=== PATIENT | female | born 1935 | race Caucasian/White ===

== ENCOUNTER 2019-04-12 13:22 | Inpatient (IN) | payer MEDICARE ==
[2019-04-12] MEDS ORDERED: Dextrose 5% in Water 1,000 ML IV PRN (21:35)
[2019-04-12] MEDS ORDERED: Dextrose 50% Abboject 50 ML SYRINGE IVP PRN (21:35)
[2019-04-12] MEDS ORDERED: HumaLOG 300 UNITS/3 ML VIAL SC PRN (21:35)
[2019-04-12] MEDS ORDERED: Terazosin HCl 5 MG CAP PO SCH (22:15)
[2019-04-12] MEDS ORDERED: Hydrochlorothiazide 25 MG TAB PO SCH (22:15)
[2019-04-12] MEDS ORDERED: Lisinopril 20 MG TAB PO SCH (22:15)
[2019-04-12] MEDS: Acetaminophen 325 MG TAB PO PRN (23:26)
[2019-04-13] MEDS: Acetaminophen 325 MG TAB PO PRN ×3 (05:17→20:35)
[2019-04-13] MEDS: Citalopram 20 MG TAB PO SCH ×2 (08:06→08:07)
[2019-04-13] MEDS: Hydrochlorothiazide 25 MG TAB PO SCH ×2 (08:06→20:38)
[2019-04-13] MEDS: Atenolol 25 MG TAB PO SCH (08:07)
[2019-04-13] MEDS: glipiZIDE 5 MG TAB PO SCH ×2 (08:07→17:10)
[2019-04-13] MEDS: Lisinopril 20 MG TAB PO SCH ×3 (08:08→20:37)
[2019-04-13] MEDS: Amlodipine 5 MG TAB PO SCH (08:09)
[2019-04-13] MEDS: Carvedilol 12.5 MG TAB PO SCH ×2 (08:09→17:10)
[2019-04-13] MEDS: Terazosin HCl 5 MG CAP PO SCH ×2 (08:10→20:36)
[2019-04-13] MEDS: Rosuvastatin 10 MG TAB PO SCH (08:10)
[2019-04-13] MEDS ORDERED: Loperamide HCl 2 MG CAP PO PRN (11:54)
[2019-04-13] MEDS ORDERED: Ondansetron ODT 4 MG TAB PO PRN (11:54)
[2019-04-13] MEDS: HumaLOG 300 UNITS/3 ML VIAL SC PRN ×2 (12:12→17:12)
[2019-04-13] MEDS: Loperamide HCl 2 MG CAP PO PRN (14:55)
[2019-04-13] MEDS: Famotidine 20 MG TAB PO SCH (20:38)
[2019-04-13] MEDS: Triamcinolone Acetonide 200 MG, Emollient 15 oz bottle 450 ML TOP SCH (20:42)
[2019-04-13] MEDS ORDERED: EMOLLIENT TOP SCH (21:00)
[2019-04-13] MEDS ORDERED: FLU VACC TS2019-20(65YR UP)/PF 180 MCG/0.5 ML SYRINGE IM ONE (21:00)
[2019-04-13] MEDS ORDERED: TRIAMCINOLONE ACETONIDE 40 MG TOP SCH (21:00)
--- NOTE | 2019-04-13 23:33 | HP ---
PRIMARY CARE PHYSICIAN: Out of town. REASON FOR ADMISSION: For skilled rehabilitation here at [facility] bed due to physical deconditioning secondary to acute kidney injury, congestive heart failure, and urinary tract infection. BRIEF H AND P: Ms. Jonse is an 84-year-old female with a past medical history of hypertension; diabetes, type 2; morbid obesity; mild dementia; CKD stage 4; hyperlipidemia. The patient was brought in by the EMS to the emergency room on the 31 of March due to right hip pain x1 month, which caused decrease in mobility per son. The patient's son states the patient had been in the recliner for almost a month and had swelling throughout bilateral lower extremities. He notes the extremities started weeping and developed erythematous lesions to both shins. EMS was called and during the ride, they noted the patient's blood pressure was 236/106. Also noted seeping to the extremities. In the ER, the patient was noted to have a BNP of 123. Troponin was negative, but Cardiology was consulted as they suspected congestive heart failure. The patient was seen by Cardiology. She had an echocardiogram done on the 01 of April, which showed mild diastolic dysfunction with an EF of 55% to 60%. The patient was also noted to have a urinary tract infection and also cellulitis to bilateral lower extremities due to chronic venous stasis. The patient was started on IV antibiotics and completed a course of seven days of antibiotics and the UTI and lower extremity improved significantly. The patient was also started on IV Lasix and edema slowly improved. During hospitalization, the patient's admission was complicated by acute kidney injury on chronic kidney disease. She was seen by gear shaper, and Dr. Way. They monitored the patient throughout. The patient had albumin transfusions. Renal function was closely monitored. Lasix was changed to oral medications, hydrochlorothiazide, amlodipine was initially held due to hypotension and worsening renal function. The patient was placed on strict I's and O's, daily weights, and fluid restriction of 1500. She was advised to elevate her feet. The patient had improvement in her creatinine, but her GFR was pretty much the same. The pressing machine tender recommended to avoid nephrotoxins and follow up with diuretics cautiously. The patient slowly improved. She was severely physically deconditioned and the decision was made to transfer the patient to [facility] for physical rehabilitation prior to discharge back to home. The patient lives in a trailer home with her son. She says one month ago when all this started, she was able to ambulate with a two-wheeled rolling walker. Upon evaluation of the patient today, she was happy to be in facility. She was excited to start physical therapy. She denies any chest pain, shortness of breath, palpitation, or dizziness. She complains of very hard of hearing, but this is chronic for her. She denies any pain, nausea, vomiting, or diarrhea. PAST MEDICAL HISTORY: Hypertension, depression, osteoarthritis, diabetes type 2 , chronic kidney disease stage 4, and morbid obesity. PAST SURGICAL HISTORY: Cholecystectomy and hysterectomy. FAMILY HISTORY: Reports family history of cancer. SOCIAL HISTORY: The patient is retired. She lives in a trailer with her son. She ambulates with a cane and a walker. Denies tobacco, alcohol, or illicit drug use. CODE STATUS: The patient is a full code. ALLERGIES: NO KNOWN DRUG ALLERGIES. REVIEW OF SYSTEMS: CONSTITUTIONAL: Complains of generalized weakness. HEENT: Complains of hard of hearing. Denies any tachypnea. Denies any cough. Denies any vision loss or runny nose. CARDIOVASCULAR: Denies chest pain, shortness of breath, or palpitation. RESPIRATORY: Denies wheezing or cough. GASTROINTESTINAL: Denies abdominal pain, nausea, or vomiting. Complains of diarrhea. PSYCH: Complains of occasional confusion. PHYSICAL EXAMINATION: VITAL SIGNS: Temperature 97.5, pulse 72, respirations 18, O2 saturation 94% on room air, and blood pressure 164/70. GENERAL: The patient is alert, awake, and oriented x3. Lying in bed, no apparent distress. HEENT: Normocephalic and atraumatic. Moist oral mucous membranes. The patient is very hard of hearing. Has partial blindness. Anicteric sclerae. NECK: Supple. No JVD. Symmetrical. Trachea midline. No carotid bruit. CARDIAC: S1 and S2 normal. No murmurs. No gallops. No rubs. RESPIRATORY: Clear to auscultation bilaterally. No wheezing. No rales. ABDOMEN: Positive bowel sounds. Soft, nontender, obese. No guarding. EXTREMITIES: No edema bilaterally. SKIN: The patient has multiple bruises and ecchymoses to upper extremities bilaterally. The patient does have erythema, thick dry skin to the gerber of the right lower extremity. NEUROLOGICAL: No focal deficits. Cranial nerves 2 through 12 grossly intact. MUSCULOSKELETAL: Complains of weakness and mild right hip pain. PSYCHIATRIC: Flat affect. Alert, awake, and oriented x3. ASSESSMENT: 1. Physical deconditioning. 2. Acute kidney injury. 3. Acute exacerbation of congestive heart failure, diastolic dysfunction with an EF of 55% to 60%. 4. Diabetes, type 2. 5. Gait instability. 6. Mild dementia. 7. Venous stasis. 8. Hypertension. 9. Obesity. PLAN: The patient is an 84-year-old female, who has been admitted to [facility]. We will consult Physical Therapy to help with strengthening and gait instability. We will consult Occupational Therapy to help with activities of daily living. We will place the patient on a strict I's and O's. Diet, we will place her on 2000 mL fluid restriction. We will put on a low- sodium diet and diabetic diet. We will resume all the patient's home medications. We will place the patient on Accu-Chek a.c. and at bedtime. We will place the patient on GISELA hose for DVT prophylaxis and Pepcid for GI prophylaxis. We will monitor renal function closely. We will repeat BMP at least three times a week. The patient is to follow up with gear shaper as an outpatient and pressing machine tender as an outpatient. We will coordinate the patient's care with her son, who is also the power of spray unit feeder. ESTIMATED LENGTH OF STAY: 2 to 3 weeks. Job ID: [id number] [facility]
[2019-04-14] MEDS: Acetaminophen 325 MG TAB PO PRN ×2 (05:12→16:05)
[2019-04-14 05:31] LABS: #Eosinphils 0.1 thou/uL (0.0-0.7); #Lymphocytes 0.6 thou/uL (1.20-3.40); #Monocytes 0.7 thou/uL (0.11-0.59); #Neutrophils 5.5 thou/uL (1.40-6.50); %Basophils 0.5 % (0.0-1.0); %Eosinophils 1.1 % (0.0-10.0); %Monocytes 10.2 % (0.0-10.0); %Neutrophils 79.2 % (42.0-75.0); Hemoglobin 8.1 g/dL (12.0-16.0); Mean Corpuscular HGB CONC 30.7 g/dL (32.0-36.0); Mean Corpuscular Hemoglobin 28.4 pg (27.0-31.0); Mean Corpuscular Volume 92.6 fL (78.0-98.0); Mean Platelet Volume 7.2 fL (7.4-10.4); Platelet Count 162 thou/uL (130-400); RBC Distribution Width 13.8 % (11.5-14.5); Red Blood Cell (RBC) Count 2.85 mill/uL (4.20-5.40); White Blood Cell (WBC) Count 6.9 thou/uL (4.8-10.8)
[2019-04-14 05:46] LABS: Anion Gap 18 mmol/L (10-20); BUN (Urea Nitrogen) 62 mg/dL (9.8-20.1); Calc. Creatinine Clearance 19 mL/min (70-130); Calcium 8.7 mg/dL (7.8-10.44); Carbon Dioxide 21 mmol/L (23-31); Chloride 102 mmol/L (98-107); Estimated GFR-MDRD 11; Glucose 69 mg/dL (83-110); Potassium 3.6 mmol/L (3.5-5.1); Sodium 137 mmol/L (136-145)
[2019-04-14] MEDS: Famotidine 20 MG TAB PO SCH ×2 (08:33→21:21)
[2019-04-14] MEDS: Terazosin HCl 5 MG CAP PO SCH ×2 (08:33→21:21)
[2019-04-14] MEDS: Rosuvastatin 10 MG TAB PO SCH (08:33)
[2019-04-14] MEDS: Hydrochlorothiazide 25 MG TAB PO SCH ×2 (08:34→21:23)
[2019-04-14] MEDS: Lisinopril 20 MG TAB PO SCH ×2 (08:36→21:22)
[2019-04-14] MEDS: Amlodipine 5 MG TAB PO SCH (08:37)
[2019-04-14] MEDS: Carvedilol 12.5 MG TAB PO SCH ×2 (08:37→17:35)
[2019-04-14] MEDS: Atenolol 25 MG TAB PO SCH (08:37)
[2019-04-14] MEDS: Citalopram 20 MG TAB PO SCH (08:38)
[2019-04-14] MEDS: glipiZIDE 5 MG TAB PO SCH ×2 (08:39→16:05)
[2019-04-14] MEDS: Triamcinolone Acetonide 200 MG, Emollient 15 oz bottle 450 ML TOP SCH ×2 (08:40→21:26)
[2019-04-15] MEDS: glipiZIDE 5 MG TAB PO SCH ×2 (07:48→16:58)
[2019-04-15] MEDS: Hydrochlorothiazide 25 MG TAB PO SCH ×2 (08:46→21:04)
[2019-04-15] MEDS: Famotidine 20 MG TAB PO SCH ×2 (08:46→21:04)
[2019-04-15] MEDS: Terazosin HCl 5 MG CAP PO SCH ×2 (08:46→21:05)
[2019-04-15] MEDS: Rosuvastatin 10 MG TAB PO SCH (08:47)
[2019-04-15] MEDS: Carvedilol 12.5 MG TAB PO SCH ×2 (08:47→16:59)
[2019-04-15] MEDS: Atenolol 25 MG TAB PO SCH (08:47)
[2019-04-15] MEDS: Amlodipine 5 MG TAB PO SCH (08:48)
[2019-04-15] MEDS: Lisinopril 20 MG TAB PO SCH ×2 (08:48→21:05)
[2019-04-15] MEDS: Citalopram 20 MG TAB PO SCH (08:50)
[2019-04-15] MEDS: Triamcinolone Acetonide 200 MG, Emollient 15 oz bottle 450 ML TOP SCH ×2 (08:51→21:03)
[2019-04-15] MEDS: Acetaminophen 325 MG TAB PO PRN (11:41)
[2019-04-16] MEDS: Acetaminophen 325 MG TAB PO PRN (00:22)
[2019-04-16] MEDS: Famotidine 20 MG TAB PO SCH ×2 (08:20→20:14)
[2019-04-16] MEDS: glipiZIDE 5 MG TAB PO SCH ×2 (08:20→17:11)
[2019-04-16] MEDS: Atenolol 25 MG TAB PO SCH (08:21)
[2019-04-16] MEDS: Citalopram 20 MG TAB PO SCH (08:21)
[2019-04-16] MEDS: Carvedilol 12.5 MG TAB PO SCH ×2 (08:21→17:11)
[2019-04-16] MEDS: Terazosin HCl 5 MG CAP PO SCH ×2 (08:21→20:16)
[2019-04-16] MEDS: Rosuvastatin 10 MG TAB PO SCH (08:21)
[2019-04-16] MEDS: Lisinopril 20 MG TAB PO SCH ×2 (08:21→20:16)
[2019-04-16] MEDS: Amlodipine 5 MG TAB PO SCH (08:21)
[2019-04-16] MEDS: Hydrochlorothiazide 25 MG TAB PO SCH ×2 (08:22→20:15)
[2019-04-16] MEDS: Triamcinolone Acetonide 200 MG, Emollient 15 oz bottle 450 ML TOP SCH ×2 (08:23→20:17)
[2019-04-17] MEDS: Amlodipine 5 MG TAB PO SCH (08:38)
[2019-04-17] MEDS: Carvedilol 12.5 MG TAB PO SCH ×2 (08:38→16:55)
[2019-04-17] MEDS: Famotidine 20 MG TAB PO SCH ×2 (08:38→20:54)
[2019-04-17] MEDS: glipiZIDE 5 MG TAB PO SCH ×2 (08:39→16:55)
[2019-04-17] MEDS: Citalopram 20 MG TAB PO SCH (08:39)
[2019-04-17] MEDS: Rosuvastatin 10 MG TAB PO SCH (08:39)
[2019-04-17] MEDS: Atenolol 25 MG TAB PO SCH (08:39)
[2019-04-17] MEDS: Lisinopril 20 MG TAB PO SCH ×2 (08:40→20:55)
[2019-04-17] MEDS: Hydrochlorothiazide 25 MG TAB PO SCH ×2 (08:40→20:54)
[2019-04-17] MEDS: Terazosin HCl 5 MG CAP PO SCH ×2 (08:41→20:56)
[2019-04-17] MEDS: Triamcinolone Acetonide 200 MG, Emollient 15 oz bottle 450 ML TOP SCH ×2 (08:41→22:10)
[2019-04-17] MEDS: Acetaminophen 325 MG TAB PO PRN ×2 (09:44→20:57)
[2019-04-18] MEDS: Acetaminophen 325 MG TAB PO PRN ×2 (05:27→20:51)
[2019-04-18] MEDS: Carvedilol 12.5 MG TAB PO SCH ×2 (08:49→17:07)
[2019-04-18] MEDS: Amlodipine 5 MG TAB PO SCH (08:49)
[2019-04-18] MEDS: Famotidine 20 MG TAB PO SCH (08:50)
[2019-04-18] MEDS: Rosuvastatin 10 MG TAB PO SCH (08:50)
[2019-04-18] MEDS: Citalopram 20 MG TAB PO SCH (08:50)
[2019-04-18] MEDS: Terazosin HCl 5 MG CAP PO SCH (08:50)
[2019-04-18] MEDS: Lisinopril 20 MG TAB PO SCH ×2 (08:50→20:50)
[2019-04-18] MEDS: Atenolol 25 MG TAB PO SCH (08:51)
[2019-04-18] MEDS: Hydrochlorothiazide 25 MG TAB PO SCH ×2 (08:52→20:50)
[2019-04-18] MEDS: Triamcinolone Acetonide 200 MG, Emollient 15 oz bottle 450 ML TOP SCH ×2 (08:57→20:49)
[2019-04-18 09:56] LABS: #Lymphocytes 0.6 thou/uL (1.20-3.40); #Monocytes 0.5 thou/uL (0.11-0.59); #Neutrophils 3.6 thou/uL (1.40-6.50); %Eosinophils 0.1 % (0.0-10.0); %Lymphocytes 11.8 % (21.0-51.0); %Monocytes 10.9 % (0.0-10.0); %Neutrophils 76.2 % (42.0-75.0); Hemoglobin 7.3 g/dL (12.0-16.0); Mean Corpuscular HGB CONC 31.1 g/dL (32.0-36.0); Mean Corpuscular Hemoglobin 28.5 pg (27.0-31.0); Mean Corpuscular Volume 91.7 fL (78.0-98.0); Platelet Count 160 thou/uL (130-400); RBC Distribution Width 13.9 % (11.5-14.5); Red Blood Cell (RBC) Count 2.57 mill/uL (4.20-5.40); White Blood Cell (WBC) Count 4.7 thou/uL (4.8-10.8)
[2019-04-18 10:11] LABS: ALT (SGPT) 31 U/L (8-55); AST (SGOT) 25 U/L (5-34); Albumin 3.3 g/dL (3.4-4.8); Alkaline Phosphatase 94 U/L (40-110); Anion Gap 16 mmol/L (10-20); BUN (Urea Nitrogen) 79 mg/dL (9.8-20.1); Bilirubin, Total 0.3 mg/dL (0.2-1.2); Calc. Creatinine Clearance 21 mL/min (70-130); Calcium 8.2 mg/dL (7.8-10.44); Carbon Dioxide 21 mmol/L (23-31); Chloride 100 mmol/L (98-107); Estimated GFR-MDRD 13; Globulin 3.1 g/dL (2.4-3.5); Glucose 192 mg/dL (83-110); Potassium 4.9 mmol/L (3.5-5.1); Protein, Total 6.4 g/dL (6.0-8.3); Sodium 132 mmol/L (136-145)
[2019-04-19] MEDS: Carvedilol 12.5 MG TAB PO SCH ×2 (08:29→17:11)
[2019-04-19] MEDS: Famotidine 20 MG TAB PO SCH (08:29)
[2019-04-19] MEDS: Amlodipine 5 MG TAB PO SCH (08:29)
[2019-04-19] MEDS: Terazosin HCl 5 MG CAP PO SCH (08:30)
[2019-04-19] MEDS: Hydrochlorothiazide 25 MG TAB PO SCH ×2 (08:30→21:21)
[2019-04-19] MEDS: Lisinopril 20 MG TAB PO SCH ×2 (08:30→21:21)
[2019-04-19] MEDS: Rosuvastatin 10 MG TAB PO SCH (08:30)
[2019-04-19] MEDS: Citalopram 20 MG TAB PO SCH (08:30)
[2019-04-19] MEDS: Triamcinolone Acetonide 200 MG, Emollient 15 oz bottle 450 ML TOP SCH ×2 (08:31→21:20)
[2019-04-19] MEDS: Acetaminophen 325 MG TAB PO PRN (21:20)
[2019-04-20] MEDS: Rosuvastatin 10 MG TAB PO SCH (08:14)
[2019-04-20] MEDS: Terazosin HCl 5 MG CAP PO SCH (08:14)
[2019-04-20] MEDS: Citalopram 20 MG TAB PO SCH (08:14)
[2019-04-20] MEDS: Famotidine 20 MG TAB PO SCH (08:14)
[2019-04-20] MEDS: Carvedilol 12.5 MG TAB PO SCH ×2 (08:14→17:07)
[2019-04-20] MEDS: Amlodipine 5 MG TAB PO SCH (08:15)
[2019-04-20] MEDS: glipiZIDE 5 MG TAB PO SCH (08:15)
[2019-04-20] MEDS: Lisinopril 20 MG TAB PO SCH ×2 (08:15→20:04)
[2019-04-20] MEDS: Hydrochlorothiazide 25 MG TAB PO SCH ×2 (08:15→20:06)
[2019-04-20] MEDS: Triamcinolone Acetonide 200 MG, Emollient 15 oz bottle 450 ML TOP SCH ×2 (08:16→20:06)
[2019-04-21] MEDS: Lisinopril 20 MG TAB PO SCH ×2 (08:25→20:00)
[2019-04-21] MEDS: Hydrochlorothiazide 25 MG TAB PO SCH ×2 (08:25→20:00)
[2019-04-21] MEDS: glipiZIDE 5 MG TAB PO SCH (08:26)
[2019-04-21] MEDS: Carvedilol 12.5 MG TAB PO SCH ×2 (08:26→17:29)
[2019-04-21] MEDS: Rosuvastatin 10 MG TAB PO SCH (08:26)
[2019-04-21] MEDS: Terazosin HCl 5 MG CAP PO SCH (08:26)
[2019-04-21] MEDS: Amlodipine 5 MG TAB PO SCH (08:26)
[2019-04-21] MEDS: Citalopram 20 MG TAB PO SCH (08:26)
[2019-04-21] MEDS: Famotidine 20 MG TAB PO SCH (08:27)
[2019-04-21] MEDS: Triamcinolone Acetonide 200 MG, Emollient 15 oz bottle 450 ML TOP SCH ×2 (08:27→20:03)
[2019-04-21] MEDS: Loperamide HCl 2 MG CAP PO PRN (10:06)
[2019-04-22 06:49] LABS: #Eosinphils 0.1 thou/uL (0.0-0.7); #Lymphocytes 0.5 thou/uL (1.20-3.40); #Monocytes 0.6 thou/uL (0.11-0.59); #Neutrophils 2.7 thou/uL (1.40-6.50); %Basophils 1.1 % (0.0-1.0); %Eosinophils 2.1 % (0.0-10.0); %Lymphocytes 13.6 % (21.0-51.0); %Monocytes 14.5 % (0.0-10.0); %Neutrophils 68.6 % (42.0-75.0); Hemoglobin 7.7 g/dL (12.0-16.0); Mean Corpuscular HGB CONC 30.5 g/dL (32.0-36.0); Mean Corpuscular Hemoglobin 28.4 pg (27.0-31.0); Mean Corpuscular Volume 93.2 fL (78.0-98.0); Mean Platelet Volume 7.5 fL (7.4-10.4); Platelet Count 124 thou/uL (130-400); RBC Distribution Width 14.1 % (11.5-14.5); Red Blood Cell (RBC) Count 2.69 mill/uL (4.20-5.40)
[2019-04-22 07:02] LABS: Anion Gap 16 mmol/L (10-20); BUN (Urea Nitrogen) 54 mg/dL (9.8-20.1); Calc. Creatinine Clearance 29 mL/min (70-130); Calcium 9.1 mg/dL (7.8-10.44); Carbon Dioxide 20 mmol/L (23-31); Chloride 109 mmol/L (98-107); Estimated GFR-MDRD 20; Glucose 118 mg/dL (83-110); Sodium 140 mmol/L (136-145)
[2019-04-22] MEDS: Rosuvastatin 10 MG TAB PO SCH (08:19)
[2019-04-22] MEDS: glipiZIDE 5 MG TAB PO SCH (08:19)
[2019-04-22] MEDS: Terazosin HCl 5 MG CAP PO SCH (08:19)
[2019-04-22] MEDS: Citalopram 20 MG TAB PO SCH (08:19)
[2019-04-22] MEDS: Famotidine 20 MG TAB PO SCH (08:19)
[2019-04-22] MEDS: Amlodipine 5 MG TAB PO SCH (08:20)
[2019-04-22] MEDS: Hydrochlorothiazide 25 MG TAB PO SCH ×2 (08:20→20:25)
[2019-04-22] MEDS: Carvedilol 12.5 MG TAB PO SCH ×2 (08:20→17:11)
[2019-04-22] MEDS: Lisinopril 20 MG TAB PO SCH ×2 (08:20→20:27)
[2019-04-22] MEDS: Triamcinolone Acetonide 200 MG, Emollient 15 oz bottle 450 ML TOP SCH ×2 (08:21→20:27)
[2019-04-22] MEDS ORDERED: Amlodipine 5 MG TAB PO SCH (12:15)
[2019-04-22] MEDS ORDERED: Escitalopram Oxalate 10 mg Tablet PO SCH (14:00)
[2019-04-22] MEDS: Acetaminophen 325 MG TAB PO PRN (21:15)
[2019-04-23] MEDS: glipiZIDE 5 MG TAB PO SCH (09:38)
[2019-04-23] MEDS: Famotidine 20 MG TAB PO SCH (09:38)
[2019-04-23] MEDS: Citalopram 20 MG TAB PO SCH (09:38)
[2019-04-23] MEDS: Escitalopram Oxalate 10 mg Tablet PO SCH (09:39)
[2019-04-23] MEDS: Carvedilol 12.5 MG TAB PO SCH ×2 (09:39→17:17)
[2019-04-23] MEDS: Amlodipine 5 MG TAB PO SCH (09:39)
[2019-04-23] MEDS: Terazosin HCl 5 MG CAP PO SCH (09:40)
[2019-04-23] MEDS: Lisinopril 20 MG TAB PO SCH ×2 (09:40→21:01)
[2019-04-23] MEDS: Hydrochlorothiazide 25 MG TAB PO SCH ×2 (09:40→21:04)
[2019-04-23] MEDS: Rosuvastatin 10 MG TAB PO SCH (09:40)
[2019-04-23] MEDS: Triamcinolone Acetonide 200 MG, Emollient 15 oz bottle 450 ML TOP SCH ×2 (09:41→21:07)
[2019-04-24] MEDS: glipiZIDE 5 MG TAB PO SCH (08:09)
[2019-04-24] MEDS: Carvedilol 12.5 MG TAB PO SCH ×2 (08:09→17:22)
[2019-04-24] MEDS: Citalopram 20 MG TAB PO SCH (08:10)
[2019-04-24] MEDS: Hydrochlorothiazide 25 MG TAB PO SCH ×2 (08:10→20:26)
[2019-04-24] MEDS: Rosuvastatin 10 MG TAB PO SCH (08:10)
[2019-04-24] MEDS: Terazosin HCl 5 MG CAP PO SCH (08:10)
[2019-04-24] MEDS: Escitalopram Oxalate 10 mg Tablet PO SCH (08:13)
[2019-04-24] MEDS: Lisinopril 20 MG TAB PO SCH ×2 (08:13→20:30)
[2019-04-24] MEDS: Famotidine 20 MG TAB PO SCH (08:13)
[2019-04-24] MEDS: Amlodipine 5 MG TAB PO SCH (08:14)
[2019-04-24] MEDS: Triamcinolone Acetonide 200 MG, Emollient 15 oz bottle 450 ML TOP SCH ×2 (08:14→20:30)
[2019-04-25] MEDS: Famotidine 20 MG TAB PO SCH (08:17)
[2019-04-25] MEDS: glipiZIDE 5 MG TAB PO SCH (08:17)
[2019-04-25] MEDS: Hydrochlorothiazide 25 MG TAB PO SCH ×2 (08:18→20:24)
[2019-04-25] MEDS: Citalopram 20 MG TAB PO SCH (08:18)
[2019-04-25] MEDS: Escitalopram Oxalate 10 mg Tablet PO SCH (08:19)
[2019-04-25] MEDS: Carvedilol 12.5 MG TAB PO SCH ×2 (08:19→17:07)
[2019-04-25] MEDS: Rosuvastatin 10 MG TAB PO SCH (08:19)
[2019-04-25] MEDS: Terazosin HCl 5 MG CAP PO SCH (08:19)
[2019-04-25] MEDS: Amlodipine 5 MG TAB PO SCH (08:19)
[2019-04-25] MEDS: Lisinopril 20 MG TAB PO SCH ×2 (08:19→20:24)
[2019-04-25] MEDS: Triamcinolone Acetonide 200 MG, Emollient 15 oz bottle 450 ML TOP SCH ×2 (08:20→20:24)
[2019-04-26] MEDS: Citalopram 20 MG TAB PO SCH (08:19)
[2019-04-26] MEDS: Carvedilol 12.5 MG TAB PO SCH ×2 (08:19→17:04)
[2019-04-26] MEDS: Escitalopram Oxalate 10 mg Tablet PO SCH (08:19)
[2019-04-26] MEDS: glipiZIDE 5 MG TAB PO SCH (08:19)
[2019-04-26] MEDS: Terazosin HCl 5 MG CAP PO SCH (08:19)
[2019-04-26] MEDS: Amlodipine 5 MG TAB PO SCH (08:19)
[2019-04-26] MEDS: Rosuvastatin 10 MG TAB PO SCH (08:20)
[2019-04-26] MEDS: Lisinopril 20 MG TAB PO SCH ×2 (08:20→20:26)
[2019-04-26] MEDS: Hydrochlorothiazide 25 MG TAB PO SCH ×2 (08:20→20:26)
[2019-04-26] MEDS: Triamcinolone Acetonide 200 MG, Emollient 15 oz bottle 450 ML TOP SCH ×2 (08:21→20:26)
[2019-04-26] MEDS: Famotidine 20 MG TAB PO SCH (08:21)
[2019-04-26 13:43] LABS: Anion Gap 13 mmol/L (10-20); BUN (Urea Nitrogen) 42 mg/dL (9.8-20.1); Calc. Creatinine Clearance 29 mL/min (70-130); Calcium 8.8 mg/dL (7.8-10.44); Carbon Dioxide 22 mmol/L (23-31); Chloride 108 mmol/L (98-107); Estimated GFR-MDRD 20; Glucose 138 mg/dL (83-110); Potassium 5.3 mmol/L (3.5-5.1); Sodium 138 mmol/L (136-145)
[2019-04-27] MEDS: Famotidine 20 MG TAB PO SCH (08:14)
[2019-04-27] MEDS: Escitalopram Oxalate 10 mg Tablet PO SCH (08:15)
[2019-04-27] MEDS: Rosuvastatin 10 MG TAB PO SCH (08:15)
[2019-04-27] MEDS: Amlodipine 5 MG TAB PO SCH (08:15)
[2019-04-27] MEDS: Terazosin HCl 5 MG CAP PO SCH (08:15)
[2019-04-27] MEDS: Carvedilol 12.5 MG TAB PO SCH ×2 (08:16→17:02)
[2019-04-27] MEDS: Hydrochlorothiazide 25 MG TAB PO SCH ×2 (08:16→20:42)
[2019-04-27] MEDS: Citalopram 20 MG TAB PO SCH (08:16)
[2019-04-27] MEDS: glipiZIDE 5 MG TAB PO SCH (08:16)
[2019-04-27] MEDS: Lisinopril 20 MG TAB PO SCH ×2 (08:17→20:41)
[2019-04-27] MEDS: Triamcinolone Acetonide 200 MG, Emollient 15 oz bottle 450 ML TOP SCH ×2 (08:18→20:43)
[2019-04-28] MEDS: Carvedilol 12.5 MG TAB PO SCH ×2 (08:43→16:58)
[2019-04-28] MEDS: Terazosin HCl 5 MG CAP PO SCH (08:43)
[2019-04-28] MEDS: Hydrochlorothiazide 25 MG TAB PO SCH ×2 (08:43→20:51)
[2019-04-28] MEDS: Escitalopram Oxalate 10 mg Tablet PO SCH (08:43)
[2019-04-28] MEDS: glipiZIDE 5 MG TAB PO SCH (08:43)
[2019-04-28] MEDS: Amlodipine 5 MG TAB PO SCH (08:44)
[2019-04-28] MEDS: Citalopram 20 MG TAB PO SCH (08:44)
[2019-04-28] MEDS: Lisinopril 20 MG TAB PO SCH ×2 (08:44→20:51)
[2019-04-28] MEDS: Rosuvastatin 10 MG TAB PO SCH (08:44)
[2019-04-28] MEDS: Famotidine 20 MG TAB PO SCH (08:44)
[2019-04-28] MEDS: Triamcinolone Acetonide 200 MG, Emollient 15 oz bottle 450 ML TOP SCH ×2 (08:45→20:52)
[2019-04-28] MEDS ORDERED: Hydrochlorothiazide 25 MG TAB PO SCH (12:30)
[2019-04-28] MEDS: Acetaminophen 325 MG TAB PO PRN (20:52)
[2019-04-29] MEDS: Rosuvastatin 10 MG TAB PO SCH (08:47)
[2019-04-29] MEDS: Hydrochlorothiazide 25 MG TAB PO SCH ×2 (08:48→20:53)
[2019-04-29] MEDS: Terazosin HCl 5 MG CAP PO SCH (08:48)
[2019-04-29] MEDS: Citalopram 20 MG TAB PO SCH (08:48)
[2019-04-29] MEDS: Famotidine 20 MG TAB PO SCH (08:48)
[2019-04-29] MEDS: Escitalopram Oxalate 10 mg Tablet PO SCH (08:49)
[2019-04-29] MEDS: glipiZIDE 5 MG TAB PO SCH (08:49)
[2019-04-29] MEDS: Amlodipine 5 MG TAB PO SCH (08:49)
[2019-04-29] MEDS: Triamcinolone Acetonide 200 MG, Emollient 15 oz bottle 450 ML TOP SCH ×2 (08:50→20:56)
[2019-04-29] MEDS: Carvedilol 12.5 MG TAB PO SCH ×2 (08:50→17:13)
[2019-04-29] MEDS: Lisinopril 20 MG TAB PO SCH ×2 (08:50→20:53)
[2019-04-29] MEDS: Acetaminophen 325 MG TAB PO PRN (20:53)
[2019-04-30] MEDS: Terazosin HCl 5 MG CAP PO SCH (08:22)
[2019-04-30] MEDS: Lisinopril 20 MG TAB PO SCH ×2 (08:22→20:48)
[2019-04-30] MEDS: Rosuvastatin 10 MG TAB PO SCH (08:22)
[2019-04-30] MEDS: Escitalopram Oxalate 10 mg Tablet PO SCH (08:22)
[2019-04-30] MEDS: Famotidine 20 MG TAB PO SCH (08:22)
[2019-04-30] MEDS: Amlodipine 5 MG TAB PO SCH (08:22)
[2019-04-30] MEDS: Citalopram 20 MG TAB PO SCH (08:23)
[2019-04-30] MEDS: Hydrochlorothiazide 25 MG TAB PO SCH ×2 (08:23→20:48)
[2019-04-30] MEDS: Carvedilol 12.5 MG TAB PO SCH ×2 (08:23→17:16)
[2019-04-30] MEDS: Triamcinolone Acetonide 200 MG, Emollient 15 oz bottle 450 ML TOP SCH ×2 (08:23→20:55)
[2019-04-30] MEDS: glipiZIDE 5 MG TAB PO SCH (08:23)
[2019-05-01] MEDS: Terazosin HCl 5 MG CAP PO SCH (08:09)
[2019-05-01] MEDS: Famotidine 20 MG TAB PO SCH (08:09)
[2019-05-01] MEDS: Lisinopril 20 MG TAB PO SCH ×2 (08:09→21:46)
[2019-05-01] MEDS: Rosuvastatin 10 MG TAB PO SCH (08:10)
[2019-05-01] MEDS: Escitalopram Oxalate 10 mg Tablet PO SCH (08:10)
[2019-05-01] MEDS: glipiZIDE 5 MG TAB PO SCH (08:10)
[2019-05-01] MEDS: Hydrochlorothiazide 25 MG TAB PO SCH ×2 (08:10→21:46)
[2019-05-01] MEDS: Amlodipine 5 MG TAB PO SCH (08:10)
[2019-05-01] MEDS: Citalopram 20 MG TAB PO SCH (08:10)
[2019-05-01] MEDS: Carvedilol 12.5 MG TAB PO SCH ×2 (08:10→17:11)
[2019-05-01] MEDS: Triamcinolone Acetonide 200 MG, Emollient 15 oz bottle 450 ML TOP SCH ×2 (08:11→21:46)
[2019-05-02] MEDS: Amlodipine 5 MG TAB PO SCH (09:41)
[2019-05-02] MEDS: Citalopram 20 MG TAB PO SCH (09:41)
[2019-05-02] MEDS: Carvedilol 12.5 MG TAB PO SCH ×2 (09:41→17:06)
[2019-05-02] MEDS: glipiZIDE 5 MG TAB PO SCH (09:42)
[2019-05-02] MEDS: Famotidine 20 MG TAB PO SCH (09:42)
[2019-05-02] MEDS: Escitalopram Oxalate 10 mg Tablet PO SCH (09:42)
[2019-05-02] MEDS: Lisinopril 20 MG TAB PO SCH ×2 (09:42→20:54)
[2019-05-02] MEDS: Triamcinolone Acetonide 200 MG, Emollient 15 oz bottle 450 ML TOP SCH ×2 (09:43→20:53)
[2019-05-02] MEDS: Hydrochlorothiazide 25 MG TAB PO SCH ×2 (09:43→20:53)
[2019-05-02] MEDS: Terazosin HCl 5 MG CAP PO SCH (09:43)
[2019-05-02] MEDS: Rosuvastatin 10 MG TAB PO SCH ×2 (10:26→20:53)
[2019-05-02 15:24] LABS: Anion Gap 16 mmol/L (10-20); BUN (Urea Nitrogen) 54 mg/dL (9.8-20.1); Calc. Creatinine Clearance 27 mL/min (70-130); Calcium 8.5 mg/dL (7.8-10.44); Carbon Dioxide 19 mmol/L (23-31); Chloride 108 mmol/L (98-107); Estimated GFR-MDRD 18; Glucose 99 mg/dL (83-110); Sodium 138 mmol/L (136-145); Uric Acid 8.4 mg/dL (2.6-6.0)
[2019-05-02 15:56] LABS: Hemoglobin 7.5 g/dL (12.0-16.0); Mean Corpuscular HGB CONC 30.2 g/dL (32.0-36.0); Mean Corpuscular Hemoglobin 28.7 pg (27.0-31.0); Mean Platelet Volume 9.1 fL (7.4-10.4); Platelet Count 112 thou/uL (130-400); RBC Distribution Width 14.9 % (11.5-14.5); Red Blood Cell (RBC) Count 2.61 mill/uL (4.20-5.40); White Blood Cell (WBC) Count 3.2 thou/uL (4.8-10.8)
[2019-05-02 15:57] LABS: Eosinophils 6 % (0-10); Hypochromia SLIGHT = 6-15 cells (100X) (0-5/hpf); Lymphocytes 9 % (21-51); MDiff Complete? YES; Metamyelocyte 1 % (0-0); Monocytes 14 % (0-10); Myelocyte 1 % (0-0); Neutrophil 53 % (42-75); Platelet Morphology Comment Appears Decreased; Reactive Lymphocytes 16 % (0-10)
[2019-05-02] MEDS ORDERED: predniSONE 20 MG TAB PO SCH (17:00)
--- NOTE | 2019-05-02 17:01 | RAD ---
XR Foot Lt 3 View STANDARD INDICATION: Left foot pain with concern for possible gout COMPARISON: None. FINDINGS: Bones: No acute fracture identified. There is moderate plantar and severe posterior calcaneal entheso phytes. Joints: No active periarticular erosive change or periarticular soft tissue calcifications are eviden t to suggest presence of gout by radiograph. There is scattered osteoarthrosis of the forefoot and midfoot. The left great toe is held in hyperextension at the IP joint slightly limiting the exam. Lisfranc alignment: Lisfranc alignment appears within normal limits. Soft tissues: There is diffuse soft tissue swelling of the left foreleg, ankle and left foot IMPRESSION: No acute osseous abnormality.
[2019-05-03] MEDS: Terazosin HCl 5 MG CAP PO SCH (08:36)
[2019-05-03] MEDS: Famotidine 20 MG TAB PO SCH (08:37)
[2019-05-03] MEDS: glipiZIDE 5 MG TAB PO SCH (08:38)
[2019-05-03] MEDS: predniSONE 20 MG TAB PO SCH (08:38)
[2019-05-03] MEDS: Citalopram 20 MG TAB PO SCH (08:38)
[2019-05-03] MEDS: Lisinopril 20 MG TAB PO SCH ×2 (08:39→20:44)
[2019-05-03] MEDS: Escitalopram Oxalate 10 mg Tablet PO SCH (08:40)
[2019-05-03] MEDS: Hydrochlorothiazide 25 MG TAB PO SCH ×2 (08:41→20:44)
[2019-05-03] MEDS: Carvedilol 12.5 MG TAB PO SCH ×2 (08:41→17:07)
[2019-05-03] MEDS: Amlodipine 5 MG TAB PO SCH (08:41)
[2019-05-03] MEDS: Allopurinol 100 MG TAB PO SCH (08:41)
[2019-05-03] MEDS: Triamcinolone Acetonide 200 MG, Emollient 15 oz bottle 450 ML TOP SCH ×2 (08:45→20:43)
[2019-05-03] MEDS: Rosuvastatin 10 MG TAB PO SCH (20:45)
[2019-05-04] MEDS: Famotidine 20 MG TAB PO SCH (08:23)
[2019-05-04] MEDS: Terazosin HCl 5 MG CAP PO SCH (08:23)
[2019-05-04] MEDS: Carvedilol 12.5 MG TAB PO SCH ×2 (08:23→17:10)
[2019-05-04] MEDS: Escitalopram Oxalate 10 mg Tablet PO SCH (08:24)
[2019-05-04] MEDS: Citalopram 20 MG TAB PO SCH ×2 (08:24→08:25)
[2019-05-04] MEDS: Allopurinol 100 MG TAB PO SCH (08:24)
[2019-05-04] MEDS: Amlodipine 5 MG TAB PO SCH (08:24)
[2019-05-04] MEDS: Lisinopril 20 MG TAB PO SCH ×2 (08:24→20:32)
[2019-05-04] MEDS: Hydrochlorothiazide 25 MG TAB PO SCH ×2 (08:25→20:31)
[2019-05-04] MEDS: glipiZIDE 5 MG TAB PO SCH (08:25)
[2019-05-04] MEDS: Triamcinolone Acetonide 200 MG, Emollient 15 oz bottle 450 ML TOP SCH ×2 (08:25→20:32)
[2019-05-04] MEDS: predniSONE 20 MG TAB PO SCH (08:25)
[2019-05-04] MEDS: Rosuvastatin 10 MG TAB PO SCH (20:31)
[2019-05-05] MEDS: Lisinopril 20 MG TAB PO SCH ×2 (08:22→21:09)
[2019-05-05] MEDS: Allopurinol 100 MG TAB PO SCH (08:22)
[2019-05-05] MEDS: Carvedilol 12.5 MG TAB PO SCH ×2 (08:25→17:04)
[2019-05-05] MEDS: Famotidine 20 MG TAB PO SCH (08:25)
[2019-05-05] MEDS: predniSONE 20 MG TAB PO SCH (08:25)
[2019-05-05] MEDS: Terazosin HCl 5 MG CAP PO SCH (08:25)
[2019-05-05] MEDS: Escitalopram Oxalate 10 mg Tablet PO SCH (08:25)
[2019-05-05] MEDS: Amlodipine 5 MG TAB PO SCH (08:25)
[2019-05-05] MEDS: Hydrochlorothiazide 25 MG TAB PO SCH ×2 (08:26→21:09)
[2019-05-05] MEDS: glipiZIDE 5 MG TAB PO SCH (08:26)
[2019-05-05] MEDS: Triamcinolone Acetonide 200 MG, Emollient 15 oz bottle 450 ML TOP SCH ×2 (08:28→21:10)
[2019-05-05] MEDS: Rosuvastatin 10 MG TAB PO SCH (21:09)
[2019-05-06] MEDS: Amlodipine 5 MG TAB PO SCH (08:46)
[2019-05-06] MEDS: Terazosin HCl 5 MG CAP PO SCH (08:46)
[2019-05-06] MEDS: Citalopram 20 MG TAB PO SCH (08:46)
[2019-05-06] MEDS: glipiZIDE 5 MG TAB PO SCH (08:47)
[2019-05-06] MEDS: predniSONE 20 MG TAB PO SCH (08:47)
[2019-05-06] MEDS: Hydrochlorothiazide 25 MG TAB PO SCH ×2 (08:47→21:26)
[2019-05-06] MEDS: Escitalopram Oxalate 10 mg Tablet PO SCH (08:47)
[2019-05-06] MEDS: Famotidine 20 MG TAB PO SCH (08:47)
[2019-05-06] MEDS: Allopurinol 100 MG TAB PO SCH (08:47)
[2019-05-06] MEDS: Carvedilol 12.5 MG TAB PO SCH ×2 (08:47→17:03)
[2019-05-06] MEDS: Lisinopril 20 MG TAB PO SCH ×2 (08:49→21:26)
[2019-05-06] MEDS: Triamcinolone Acetonide 200 MG, Emollient 15 oz bottle 450 ML TOP SCH ×2 (08:52→21:27)
[2019-05-06] MEDS: Acetaminophen 325 MG TAB PO PRN ×2 (13:10→21:31)
[2019-05-06] MEDS: Rosuvastatin 10 MG TAB PO SCH (21:27)
[2019-05-07] MEDS: Amlodipine 5 MG TAB PO SCH (08:19)
[2019-05-07] MEDS: Allopurinol 100 MG TAB PO SCH (08:19)
[2019-05-07] MEDS: Carvedilol 12.5 MG TAB PO SCH ×2 (08:20→17:09)
[2019-05-07] MEDS: Escitalopram Oxalate 10 mg Tablet PO SCH (08:20)
[2019-05-07] MEDS: Lisinopril 20 MG TAB PO SCH ×2 (08:20→20:24)
[2019-05-07] MEDS: Citalopram 20 MG TAB PO SCH (08:20)
[2019-05-07] MEDS: Triamcinolone Acetonide 200 MG, Emollient 15 oz bottle 450 ML TOP SCH ×2 (08:20→20:25)
[2019-05-07] MEDS: Terazosin HCl 5 MG CAP PO SCH (08:20)
[2019-05-07] MEDS: Hydrochlorothiazide 25 MG TAB PO SCH ×2 (08:20→20:24)
[2019-05-07] MEDS: Famotidine 20 MG TAB PO SCH (08:20)
[2019-05-07] MEDS: glipiZIDE 5 MG TAB PO SCH (08:20)
[2019-05-07] MEDS: Acetaminophen 325 MG TAB PO PRN ×2 (10:57→20:28)
[2019-05-07] MEDS: Rosuvastatin 10 MG TAB PO SCH (20:24)
[2019-05-08] MEDS: Hydrochlorothiazide 25 MG TAB PO SCH ×2 (08:33→21:42)
[2019-05-08] MEDS: Citalopram 20 MG TAB PO SCH (08:33)
[2019-05-08] MEDS: glipiZIDE 5 MG TAB PO SCH (08:33)
[2019-05-08] MEDS: Famotidine 20 MG TAB PO SCH (08:33)
[2019-05-08] MEDS: Allopurinol 100 MG TAB PO SCH (08:33)
[2019-05-08] MEDS: Terazosin HCl 5 MG CAP PO SCH (08:33)
[2019-05-08] MEDS: Amlodipine 5 MG TAB PO SCH (08:34)
[2019-05-08] MEDS: Carvedilol 12.5 MG TAB PO SCH ×2 (08:34→17:08)
[2019-05-08] MEDS: Lisinopril 20 MG TAB PO SCH ×2 (08:34→21:42)
[2019-05-08] MEDS: Escitalopram Oxalate 10 mg Tablet PO SCH (08:35)
[2019-05-08] MEDS: Triamcinolone Acetonide 200 MG, Emollient 15 oz bottle 450 ML TOP SCH ×2 (08:35→21:42)
[2019-05-08] MEDS: Rosuvastatin 10 MG TAB PO SCH (21:42)
[2019-05-09] MEDS: Allopurinol 100 MG TAB PO SCH (08:18)
[2019-05-09] MEDS: Amlodipine 5 MG TAB PO SCH (08:19)
[2019-05-09] MEDS: Famotidine 20 MG TAB PO SCH (08:23)
[2019-05-09] MEDS: Escitalopram Oxalate 10 mg Tablet PO SCH (08:23)
[2019-05-09] MEDS: Lisinopril 20 MG TAB PO SCH ×2 (08:23→20:43)
[2019-05-09] MEDS: Carvedilol 12.5 MG TAB PO SCH ×2 (08:23→17:06)
[2019-05-09] MEDS: Terazosin HCl 5 MG CAP PO SCH (08:24)
[2019-05-09] MEDS: glipiZIDE 5 MG TAB PO SCH (08:24)
[2019-05-09] MEDS: Hydrochlorothiazide 25 MG TAB PO SCH ×2 (08:24→20:43)
[2019-05-09] MEDS: Triamcinolone Acetonide 200 MG, Emollient 15 oz bottle 450 ML TOP SCH ×2 (08:24→20:44)
[2019-05-09] MEDS: Citalopram 20 MG TAB PO SCH (08:24)
[2019-05-09] MEDS: Acetaminophen 325 MG TAB PO PRN (09:49)
[2019-05-09 14:01] VITALS: BMI 37.0
[2019-05-09] MEDS: Rosuvastatin 10 MG TAB PO SCH (20:43)
[2019-05-10] MEDS: Acetaminophen 325 MG TAB PO PRN ×2 (01:04→08:27)
[2019-05-10] MEDS: Amlodipine 5 MG TAB PO SCH (08:09)
[2019-05-10] MEDS: Allopurinol 100 MG TAB PO SCH (08:10)
[2019-05-10] MEDS: Hydrochlorothiazide 25 MG TAB PO SCH ×2 (08:10→20:41)
[2019-05-10] MEDS: Terazosin HCl 5 MG CAP PO SCH (08:10)
[2019-05-10] MEDS: Carvedilol 12.5 MG TAB PO SCH ×2 (08:11→17:14)
[2019-05-10] MEDS: Citalopram 20 MG TAB PO SCH (08:11)
[2019-05-10] MEDS: Lisinopril 20 MG TAB PO SCH ×2 (08:11→20:42)
[2019-05-10] MEDS: Famotidine 20 MG TAB PO SCH (08:11)
[2019-05-10] MEDS: Escitalopram Oxalate 10 mg Tablet PO SCH (08:11)
[2019-05-10] MEDS: glipiZIDE 5 MG TAB PO SCH (08:11)
[2019-05-10] MEDS: Triamcinolone Acetonide 200 MG, Emollient 15 oz bottle 450 ML TOP SCH ×2 (08:12→20:42)
[2019-05-10] MEDS: Rosuvastatin 10 MG TAB PO SCH (20:41)
[2019-05-11] MEDS: Escitalopram Oxalate 10 mg Tablet PO SCH (08:26)
[2019-05-11] MEDS: Famotidine 20 MG TAB PO SCH (08:26)
[2019-05-11] MEDS: Allopurinol 100 MG TAB PO SCH (08:26)
[2019-05-11] MEDS: Terazosin HCl 5 MG CAP PO SCH (08:26)
[2019-05-11] MEDS: Citalopram 20 MG TAB PO SCH (08:26)
[2019-05-11] MEDS: Carvedilol 12.5 MG TAB PO SCH ×2 (08:26→17:20)
[2019-05-11] MEDS: Amlodipine 5 MG TAB PO SCH (08:26)
[2019-05-11] MEDS: Triamcinolone Acetonide 200 MG, Emollient 15 oz bottle 450 ML TOP SCH ×2 (08:27→20:53)
[2019-05-11] MEDS: glipiZIDE 5 MG TAB PO SCH (08:27)
[2019-05-11] MEDS: Lisinopril 20 MG TAB PO SCH ×2 (08:27→20:51)
[2019-05-11] MEDS: Hydrochlorothiazide 25 MG TAB PO SCH ×2 (08:27→20:50)
[2019-05-11] MEDS: Acetaminophen 325 MG TAB PO PRN (14:12)
[2019-05-11] MEDS: Rosuvastatin 10 MG TAB PO SCH (20:53)
[2019-05-12 06:08] LABS: Hemoglobin 7.6 g/dL (12.0-16.0); Mean Corpuscular HGB CONC 30.7 g/dL (32.0-36.0); Mean Corpuscular Hemoglobin 29.2 pg (27.0-31.0); Mean Corpuscular Volume 95.1 fL (78.0-98.0); Mean Platelet Volume 9.9 fL (7.4-10.4); Platelet Count 95 thou/uL (130-400); RBC Distribution Width 15.2 % (11.5-14.5); Red Blood Cell (RBC) Count 2.61 mill/uL (4.20-5.40)
[2019-05-12 06:10] LABS: Anion Gap 15 mmol/L (10-20); BUN (Urea Nitrogen) 62 mg/dL (9.8-20.1); Calc. Creatinine Clearance 23 mL/min (70-130); Calcium 8.5 mg/dL (7.8-10.44); Carbon Dioxide 18 mmol/L (23-31); Chloride 109 mmol/L (98-107); Estimated GFR-MDRD 15; Glucose 93 mg/dL (83-110); Potassium 5.1 mmol/L (3.5-5.1); Sodium 137 mmol/L (136-145)
[2019-05-12 06:33] LABS: Hypochromia SLIGHT = 6-15 cells (100X) (0-5/hpf); Lymphocytes 11 % (21-51); MDiff Complete? YES; Monocytes 18 % (0-10); Neutrophil 71 % (42-75); Platelet Morphology Comment Appears Decreased; Schistocytes SLIGHT = 2-5 cells (100X) (0-1/hpf)
[2019-05-12] MEDS: Amlodipine 5 MG TAB PO SCH (08:14)
[2019-05-12] MEDS: Terazosin HCl 5 MG CAP PO SCH (08:14)
[2019-05-12] MEDS: Famotidine 20 MG TAB PO SCH (08:14)
[2019-05-12] MEDS: Allopurinol 100 MG TAB PO SCH (08:14)
[2019-05-12] MEDS: Escitalopram Oxalate 10 mg Tablet PO SCH (08:15)
[2019-05-12] MEDS: glipiZIDE 5 MG TAB PO SCH (08:15)
[2019-05-12] MEDS: Lisinopril 20 MG TAB PO SCH ×2 (08:15→21:37)
[2019-05-12] MEDS: Carvedilol 12.5 MG TAB PO SCH ×2 (08:15→17:03)
[2019-05-12] MEDS: Hydrochlorothiazide 25 MG TAB PO SCH ×2 (08:15→21:37)
[2019-05-12] MEDS: Citalopram 20 MG TAB PO SCH (08:15)
[2019-05-12] MEDS: Triamcinolone Acetonide 200 MG, Emollient 15 oz bottle 450 ML TOP SCH ×2 (08:16→21:40)
[2019-05-12] MEDS: Acetaminophen 325 MG TAB PO PRN (19:27)
[2019-05-12] MEDS: Rosuvastatin 10 MG TAB PO SCH (21:37)
[2019-05-13] MEDS: Carvedilol 12.5 MG TAB PO SCH ×2 (08:40→17:12)
[2019-05-13] MEDS: Amlodipine 5 MG TAB PO SCH (08:40)
[2019-05-13] MEDS: Terazosin HCl 5 MG CAP PO SCH (08:40)
[2019-05-13] MEDS: Famotidine 20 MG TAB PO SCH (08:40)
[2019-05-13] MEDS: glipiZIDE 5 MG TAB PO SCH (08:41)
[2019-05-13] MEDS: Lisinopril 20 MG TAB PO SCH ×2 (08:41→20:12)
[2019-05-13] MEDS: Citalopram 20 MG TAB PO SCH (08:41)
[2019-05-13] MEDS: Escitalopram Oxalate 10 mg Tablet PO SCH (08:41)
[2019-05-13] MEDS: Allopurinol 100 MG TAB PO SCH (08:41)
[2019-05-13] MEDS: Hydrochlorothiazide 25 MG TAB PO SCH ×2 (08:41→20:12)
[2019-05-13] MEDS: Triamcinolone Acetonide 200 MG, Emollient 15 oz bottle 450 ML TOP SCH ×2 (08:42→20:13)
[2019-05-13] MEDS: Rosuvastatin 10 MG TAB PO SCH (20:12)
[2019-05-13] MEDS: Acetaminophen 325 MG TAB PO PRN (21:16)
[2019-05-14] MEDS: Escitalopram Oxalate 10 mg Tablet PO SCH (08:17)
[2019-05-14] MEDS: Famotidine 20 MG TAB PO SCH (08:17)
[2019-05-14] MEDS: Terazosin HCl 5 MG CAP PO SCH (08:17)
[2019-05-14] MEDS: Allopurinol 100 MG TAB PO SCH (08:17)
[2019-05-14] MEDS: Citalopram 20 MG TAB PO SCH (08:18)
[2019-05-14] MEDS: Hydrochlorothiazide 25 MG TAB PO SCH ×2 (08:18→21:40)
[2019-05-14] MEDS: Carvedilol 12.5 MG TAB PO SCH ×2 (08:18→17:04)
[2019-05-14] MEDS: Lisinopril 20 MG TAB PO SCH ×2 (08:18→21:40)
[2019-05-14] MEDS: Amlodipine 5 MG TAB PO SCH (08:18)
[2019-05-14] MEDS: Triamcinolone Acetonide 200 MG, Emollient 15 oz bottle 450 ML TOP SCH ×2 (08:19→21:41)
[2019-05-14] MEDS: glipiZIDE 5 MG TAB PO SCH (08:19)
[2019-05-14] MEDS: Rosuvastatin 10 MG TAB PO SCH (21:39)
[2019-05-15] MEDS: Allopurinol 100 MG TAB PO SCH (08:18)
[2019-05-15] MEDS: Amlodipine 5 MG TAB PO SCH (08:18)
[2019-05-15] MEDS: Famotidine 20 MG TAB PO SCH (08:18)
[2019-05-15] MEDS: glipiZIDE 5 MG TAB PO SCH (08:18)
[2019-05-15] MEDS: Terazosin HCl 5 MG CAP PO SCH (08:18)
[2019-05-15] MEDS: Carvedilol 12.5 MG TAB PO SCH ×2 (08:19→17:00)
[2019-05-15] MEDS: Escitalopram Oxalate 10 mg Tablet PO SCH (08:19)
[2019-05-15] MEDS: Lisinopril 20 MG TAB PO SCH ×2 (08:19→21:32)
[2019-05-15] MEDS: Hydrochlorothiazide 25 MG TAB PO SCH ×2 (08:19→21:32)
[2019-05-15] MEDS: Triamcinolone Acetonide 200 MG, Emollient 15 oz bottle 450 ML TOP SCH ×2 (08:19→21:44)
[2019-05-15] MEDS: Citalopram 20 MG TAB PO SCH (08:19)
[2019-05-15] MEDS: Rosuvastatin 10 MG TAB PO SCH (21:32)
[2019-05-15] MEDS: Acetaminophen 325 MG TAB PO PRN (21:35)
[2019-05-16] MEDS: Terazosin HCl 5 MG CAP PO SCH (08:22)
[2019-05-16] MEDS: Carvedilol 12.5 MG TAB PO SCH (08:22)
[2019-05-16] MEDS: Famotidine 20 MG TAB PO SCH (08:22)
[2019-05-16] MEDS: glipiZIDE 5 MG TAB PO SCH (08:23)
[2019-05-16] MEDS: Allopurinol 100 MG TAB PO SCH (08:23)
[2019-05-16] MEDS: Amlodipine 5 MG TAB PO SCH (08:23)
[2019-05-16] MEDS: Hydrochlorothiazide 25 MG TAB PO SCH (08:23)
[2019-05-16] MEDS: Citalopram 20 MG TAB PO SCH (08:23)
[2019-05-16] MEDS: Lisinopril 20 MG TAB PO SCH (08:23)
[2019-05-16 08:24] VITALS: BP 152/79
[2019-05-16] MEDS: Triamcinolone Acetonide 200 MG, Emollient 15 oz bottle 450 ML TOP SCH (08:24)
[2019-05-16] MEDS: Escitalopram Oxalate 10 mg Tablet PO SCH (08:24)
[2019-05-16 09:48] VITALS: TEMP 96.3
[2019-05-16] MEDS: Acetaminophen 325 MG TAB PO PRN (14:25)
--- NOTE | 2019-05-16 17:18 | DIS ---
DATE OF ADMISSION: 04/12/2019 DATE OF DISCHARGE: 05/16/2019 DISCHARGING PHYSICIAN: Stephen Huddleston MD DISCHARGE DISPOSITION: To [facility] in [place]. DISCHARGE MEDICATIONS: 1. Allopurinol 200 daily. 2. Tylenol 650 q.4 hours p.r.n. 3. Norvasc 10 daily. 4. Coreg 12.5 daily. 5. Celexa 40 daily. 6. Glipizide 5 mg daily. 7. Hydrochlorothiazide 25 b.i.d. 8. Lisinopril 20 b.i.d. 9. Crestor 20 at bedtime. 10. Terazosin 10 mg daily. DISCHARGE INSTRUCTIONS: The patient to ambulate with a four-wheeled walker at all times. The patient to follow up with long-term physician in 1 week. longterm physician to monitor CBC and BMP and repeat in 1 week. BRIEF HOSPITAL COURSE: Ms. Jones is an 84-year-old female, who was admitted here in [facility] on the 12 of April for skilled rehabilitation secondary to severe physical deconditioning due to acute kidney injury, congestive heart failure, and urinary tract infection. The patient was admitted to [place] in [place] on March 31 due to acute exacerbation of congestive heart failure with diastolic dysfunction, urinary tract infection, and acute kidney injury. The patient in [place] was diuresed and also treated with IV antibiotics. She was also noted to have chronic venous stasis to bilateral lower extremity and with IV Lasix and antibiotic, this improved significantly. Due to the IV Lasix, the patient had acute kidney injury on chronic kidney disease and she was seen by and Dr. Way nephrologists, who monitored this throughout hospitalization. The patient's GFR pretty much improved and stayed at baseline until she was transferred here for skilled rehabilitation. During rehabilitation, the patient's kidney function stabilized, she was able to participate in physical therapy. By day of discharge, the patient was able to ambulate with a rolling walker about 60 feet. The patient was noted to be more depressed during hospitalization and Lexapro was given in addition to Celexa. The patient initially noted this helped, but during hospitalization, the patient was back to her baseline where she was depressed and she cried a lot at times. The patient was upset that she could not go back to her home, but she was aware that sons could not take care of her any longer. The patient's hospitalization was also complicated by a left foot gout and this resolved with a 5-day course of prednisone and starting her on allopurinol. The patient had an x-ray of the foot, which was negative and she progressed nicely with therapy. The patient was subsequently discharged to long-term per family's request, as the sons could not take care of her at home. During hospitalization, the patient was noted to be anemic, but this was chronic and stable and she did not need any blood transfusions. The patient was discharged to long-term on the 15 of May and a COVID screening was done and form signed and faxed over to long-term prior to discharge. Vital signs; temperature 96.3, pulse 58, respirations 20, O2 of 99% on room air, and blood pressure 152/79. Job ID: [id number] [facility]TD[facility]
== END 2019-05-16 16:20 | DRG 682 ==
LOC: MADMS 18:56
PROVIDERS: ADMIT Family Medicine; ATTEND Family Medicine
DX: N17.9 Acute kidney failure, unspecified (principal); I50.33 Acute on chronic diastolic (congestive) heart failure; N39.0 Urinary tract infection, site not specified; I13.0 Hypertensive heart and chronic kidney disease with heart failure and stage 1 through stage 4 chronic kidney disease, or unspecified chronic kidney disease; E78.5 Hyperlipidemia, unspecified; E66.01 Morbid (severe) obesity due to excess calories; F32.9 Major depressive disorder, single episode, unspecified; M19.90 Unspecified osteoarthritis, unspecified site; M10.9 Gout, unspecified; I87.8 Other specified disorders of veins; N18.4 Chronic kidney disease, stage 4 (severe); E11.22 Type 2 diabetes mellitus with diabetic chronic kidney disease; F03.90 Unspecified dementia, unspecified severity, without behavioral disturbance, psychotic disturbance, mood disturbance, and anxiety; Z68.36 Body mass index [BMI] 36.0-36.9, adult; Z90.49 Acquired absence of other specified parts of digestive tract; Z90.710 Acquired absence of both cervix and uterus; D64.89 Other specified anemias
CPT/HCPCS: 36416; 80048; 80053; 83036; 84550; 85025; 36415-59; J3301; J7512; J7620